=== PATIENT | female | born 1975 | race Caucasian/White ===

== ENCOUNTER → 2020-07-25 09:05 | Outpatient (BNVA) | payer OTHER, SELFPAY | PROVIDERS: PCP Internal Medicine; Visit Provider Hospitalist ==

== ENCOUNTER → 2021-04-18 09:01 | Outpatient (BNVA) | payer OTHER, SELFPAY | PROVIDERS: PCP Internal Medicine; Visit Provider Hospitalist | DX: G47.33 Obstructive sleep apnea (adult) (pediatric) (principal); J98.4 Other disorders of lung; J45.909 Unspecified asthma, uncomplicated; R51.9 Headache, unspecified; G04.1 Tropical spastic paraplegia; R40.0 Somnolence; Z99.89 Dependence on other enabling machines and devices | CPT/HCPCS: 99212 ==

== ENCOUNTER → 2021-07-05 10:35 | Outpatient (BNVA) | payer OTHER, SELFPAY | PROVIDERS: PCP Internal Medicine; Visit Provider Hospitalist ==

== ENCOUNTER 2022-12-18 10:18 | Outpatient (AMB) | payer OTHER, SELFPAY ==
--- NOTE | 2022-12-18 10:48 | A.OFFVIS_ITS ---
Intake Vital Signs 12/18/22 10:50 Height 5 ft 6 in BMI Reason not done Patient refused/unable BP 102/60 Blood Pressure Location Lt brachial Position Sitting Pulse 63 Pulse Source Pulse Oximeter Pulse Oximetry (%) 99 Oxygen Delivery Method Room Air Intake Visit Reasons: sleep apnea Intake Note: pt is here for follow up and feels okay today Allergies No Known Allergies Allergy (Verified 12/18/22 10:53) HPI HPI Comments History of Present Illness Details The patient is a 47-year-old woman with a known history of headache battery spastic paraplegia, dyspnea underlying asthma in addition to suspicion of obstructive sleep apnea. The patient does have daytime drowsiness. Her [place] score is elevated 05/26. She is scheduled to have a sleep study done at [facility]. She has not picked up the equipment yet. Apparently she will do a home sleep study. Will follow up the results afterwards. In the meantime the patient continues to have dyspnea on exertion. She has underlying obstructive airway disease. She has been using inhalers although there is some degree of discrepancy with inhaler she is using at this time. At this point would be easier to maximize her respiratory therapy and simplify with the use of Trelegy. She did have a sleep study done demonstrating an AHI of 8.8 consistent with me mild sleep apnea. She was started on CPAP therapy. CPAP therapy has been her for her to tolerate due to the fact that she has a hard time sleeping due in her apartment complex being very loud in also with her child that gets very upset when she worse the mask. She does have a P10 nasal pillow mask. She did get a call from her [employer] about having to use it more having to return it. We did agree that she can take a nap during the daytime while her son takes a nap in that allows her to sleep with the machine 2 hours. She should also put on quickly after he falls asleep in order for her to tolerated again throughout the night as much as possible. 12/18/2022 the patient is here for a pulmonary follow-up visit today. The patient has been using her CPAP every night. The CPAP therapy continues to be affecting beneficial and she does use it for more than 4 hours a night. She does complain because she has not gotten supplies were [employer]. She states the tubing is now dark and looks multi and the mask is very 30. But she continues use it because she does not want to be out of compliance. The patient is very concerned however that this dirty equipment can potentially contaminated lungs and cause worsening respiratory symptoms. I did call out to the [employer] company did but is script out to the [employer] company regarding more supplies. Unfortunately it looks like her machine is no longer download information into the airway you system. Therefore, Sunny will get in touch with her in order to get a download. My understanding and I do trust the patient's history and also the aid with with her that she is using the machine all night more than 4 hours a night and she has been compliant with therapy. She does complaint of shortness of breath. She does have asthma. She continues on Trelegy. She does have dyspnea on exertion. She does have a come home and of muscular dystrophy and a lot of times is on a wheelchair. [facility] Medical History (Updated 07/25/20 @ 21:38 by Joon Shirley MD) Asthma Chronic allergic rhinitis Chronic restrictive lung disease CLEMENTINA on CPAP Social History Patient Tobacco Use Status: Never used Tobacco Review of Systems Const Denies daytime sleepiness, Denies night sweats and Denies snoring ENT Denies change in voice, Denies lip swelling, Denies mouth pain, Reports nasal congestion, Reports nasal discharge and Denies tongue swelling Card Denies chest pain and Reports dyspnea on exertion Resp Reports cough, Reports dyspnea on exertion and Denies snoring GI Denies abdominal pain Musc Denies no additional complaints Neuro Denies Neuro-related abnormal movements Psych Denies no additional complaints Wicho/Lymph Denies easy bleeding and Denies lymphadenopathy Aller/Immun Denies lip swelling and Denies tongue swelling Physical Exam Vital Signs: Last Vital Signs Pulse 63 12/18/22 10:50 BP 102/60 12/18/22 10:50 Pulse Ox 99 12/18/22 10:50 Oxygen Delivery Method Room Air 12/18/22 10:50 Const General: alert Neck Neck: Yes normal visual inspection, Yes full ROM and Yes no lymphadenopathy Chest Chest palpation & inspection: normal inspection of the chest Resp Auscultation: diminished lung sounds Cardio Rate: regular rate Rhythm: regular rhythm Heart sounds: S1 normal heart sound present and S2 normal heart sound present GI Palpation (GI): Soft to palpation and nontender Auscultation: normal bowel sounds Skin General skin exam: rashes and/or lesions noted Assessment & Plan Assessment & Plan (1) Asthma: Code(s): J45.909 - Unspecified asthma, uncomplicated Qualifiers: Asthma complication type: uncomplicated Asthma persistence: persistent Asthma severity: moderate Qualified Code(s): J45.40 - Moderate persistent asthma, uncomplicated (2) CLEMENTINA on CPAP: Code(s): G47.33 - Obstructive sleep apnea (adult) (pediatric); Z99.89 - Dependence on other enabling machines and devices (3) Chronic restrictive lung disease: Code(s): J98.4 - Other disorders of lung (4) Chronic allergic rhinitis: Code(s): J30.9 - Allergic rhinitis, unspecified Plan Continue respiratory therapy: Trelegy, aluterol CPAP therapy, needs new supplies [employer]. D[employer] company, [employer]. F/U 3 months Coding Level of Care Code Est Pt Level 4 (35641) Diagnoses Asthma J45.40 Asthma complication type: uncomplicated Asthma persistence: persistent Asthma severity: moderate CLEMENTINA on CPAP G47.33; Z99.89 Chronic restrictive lung disease J98.4 Chronic allergic rhinitis J30.9 Time Spent (min) 21
[2022-12-18 10:50] VITALS: BP 102/60; PULSE 63; O2SAT 99
== END 2022-12-18 11:21 | disposition home or self-care (01) ==
PROVIDERS: PCP Internal Medicine; Visit Provider Hospitalist
DX: J45.40 Moderate persistent asthma, uncomplicated (principal); G47.33 Obstructive sleep apnea (adult) (pediatric); Z99.89 Dependence on other enabling machines and devices; J98.4 Other disorders of lung; J30.9 Allergic rhinitis, unspecified
CPT/HCPCS: 99214

== ENCOUNTER → 2022-12-18 10:18 | Outpatient (BNVA) | payer OTHER, SELFPAY | PROVIDERS: PCP Internal Medicine; Visit Provider Hospitalist | DX: J98.4 Other disorders of lung (principal); J45.40 Moderate persistent asthma, uncomplicated; J30.9 Allergic rhinitis, unspecified; G47.33 Obstructive sleep apnea (adult) (pediatric); G11.4 Hereditary spastic paraplegia; G71.09 Other specified muscular dystrophies; Z99.89 Dependence on other enabling machines and devices | CPT/HCPCS: 99212 ==